=== PATIENT | female | born 1965 ===

== ENCOUNTER → 2017-03-22 | Day surgery (SDC) | payer OTHER ==
[2017-03-15 11:53] VITALS: BMI 39.9
[~2017-03-22] MED LIST: Bupivacaine/Epi 0.25%-1:200,000 10 ml PF inj IJ ONE; Lactated Ringer's 1,000 ML IV ONE; Lidocaine 1% Inj (20ml) ONE; ceFAZolin IV 1 gm in Dextrose 1 GM/50 ML BAG IVPB ONE
--- NOTE | 2017-03-22 17:00 | PCM.SURG1 ---
Surgeon's Initial Post Op Note - Surgeon's Notes Surgeon: Dr Oviedo Dressmaker Or Tailor: Dr Mondragon PGY2 Type of Anesthesia: Local Pre-Operative Diagnosis: right neck mass Operative Findings: right neck epidermal inclusion cyst Post-Operative Diagnosis: as above Operation Performed: excision of cyst Specimen/Specimens Removed: cyst Estimated Blood Loss: EBL {In ML}: 2 Blood Products Given: N/A Drains Used: No Drains Post-Op Condition: Good Date of Surgery/Procedure: 03/22/17 Time of Surgery/Procedure: 16:59
[2017-03-22 17:20] VITALS: RESP 18; TEMP 97.8
[2017-03-22 17:29] VITALS: BP 118/59; PULSE 73; O2SAT 97
--- NOTE | 2017-03-22 20:43 | OP ---
PROCEDURE DATE: 03/22/2017 PREOPERATIVE DIAGNOSIS: Sebaceous cyst of the right upper neck. POSTOPERATIVE DIAGNOSIS: Sebaceous cyst of the right upper neck. PROCEDURE DONE: Excision of sebaceous cyst of the right neck. SURGEON: Maikel Oviedo MD [employer] PROJECT MANAGER: Ronn Mondragon, PGY-2 resident. ANESTHESIA: Local anesthesia plus sedation. ESTIMATED BLOOD LOSS: Around 5 mL. DRAINS: None. PATHOLOGY: Subcutaneous tissue was sent for pathology. COMPLICATIONS: None. INTRAOPERATIVE FINDINGS: This is a 51-year-old female who was diagnosed with sebaceous cyst of the r ight upper neck and patient was consented for the excision of the cyst. Brought to the OR. Placed s upine on the operating table. After induction of the sedation, the right neck was prepped and draped in a usual sterile fashion. The local anesthesia was injected and after local anesthesia was inject ed a transverse 2 cm incision was made. After incising skin and subcutaneous tissue, the upper and l ower flaps were created and sebaceous cyst was completely excised and it was sent to the table for th e pathology, and wound was closed in 2 layers, subcutaneous with a 2-0 Vicryl, skin with a 4-0 Monocr yl. Dry sterile dressing was applied. The patient tolerated the procedure well. Count of instruments and gauze was correct. There was no apparent complication. Maikel Oviedo MD cc: [id number] TT: 03/22/2017 20:43:23 andrew
== END | disposition home or self-care (01) ==
LOC: C.SDS 11:47
PROVIDERS: ATTEND Surgery Surgical Critical Care
DX: L72.3 Sebaceous cyst (principal); E03.9 Hypothyroidism, unspecified; M85.80 Other specified disorders of bone density and structure, unspecified site; K64.8 Other hemorrhoids; K57.30 Diverticulosis of large intestine without perforation or abscess without bleeding; E66.9 Obesity, unspecified; Z90.710 Acquired absence of both cervix and uterus; Z90.49 Acquired absence of other specified parts of digestive tract; Z79.899 Other long term (current) drug therapy
CPT/HCPCS: 11422; 12041; J0690; J7120

== ENCOUNTER 2018-01-03 08:37 | Day surgery (SDC) | payer OTHER ==
[2018-01-03 08:58] VITALS: BMI 37.5
--- NOTE | 2018-01-03 10:58 | CP.SDSHP ---
Same Day Surgery H & P - History Proposed Procedure: egd/colon Pre-Op Diagnosis: epigastric pain. crc screen - Allergies Allergies: Allergies No Known Allergies Allergy (Verified 03/30/14 13:51) - Physical Exam General Appearance: nl Vital Signs: Vital Signs 01/03/18 08:55 Temperature 98.6 F Pulse Rate 66 Respiratory 19 Rate Blood Pressure 126/69 O2 Sat by Pulse 97 Oximetry Mental Status: Alert & Oriented x3 Neuro: WNL Heart: WNL Lungs: WNL GI: WNL - {Optional Preform as Required} Abdomen: WNL - Impression Impression: epigastric pain. crc screen Pt. Evaluated Today:Candidate for Anesthesia & Procedure: Yes - Date & Time Date: 01/03/18 Time: 10:58 Short Stay Discharge - Short Stay Discharge Admitting Diagnosis/Reason for Visit: H-PYLORI, EPIGASTRIC PAIN, SCREENING Disposition: HOME/ ROUTINE
[2018-01-03] MEDS ORDERED: Midazolam 2 MG/2 ML VIAL ONE (11:05)
[2018-01-03] MEDS ORDERED: Propofol 10 mg/ml Inj (20 ML) ONE ×2 (11:05)
[2018-01-03 11:31] VITALS: O2SAT 100
[2018-01-03 11:57] VITALS: TEMP 97.3
[2018-01-03 12:38] VITALS: BP 105/55; PULSE 67; RESP 18
== END 2018-01-03 12:35 | disposition home or self-care (01) ==
LOC: C.ENDO 08:37
PROVIDERS: ATTEND Internal Medicine
DX: Z12.11 Encounter for screening for malignant neoplasm of colon (principal); R10.13 Epigastric pain; K63.5 Polyp of colon; K57.30 Diverticulosis of large intestine without perforation or abscess without bleeding; K64.8 Other hemorrhoids; K29.70 Gastritis, unspecified, without bleeding; D12.4 Benign neoplasm of descending colon; D12.3 Benign neoplasm of transverse colon
CPT/HCPCS: 43239; 45380; 88305; 88313; 88342; J2001; J2250; J2704

== ENCOUNTER 2018-11-17 08:55 | Outpatient (CLI) | payer SELFPAY | END 2018-11-17 08:56 | disposition home or self-care (01) | LOC: C.LAB 08:55 | DX: E11.9 Type 2 diabetes mellitus without complications (principal); E55.9 Vitamin D deficiency, unspecified ==